=== PATIENT | male | born 1950 | race African-American/Black ===

== ENCOUNTER 2016-10-25 14:08 | Inpatient (IN) | payer MEDICARE ==
[~2016-10-25] VITALS: Ht 188 cm; Wt 130.9 kg
--- NOTE | ~2016-10-25 | EC ---
PATIENT:MENDOZA TRENT DATE OF SERVICE: 10/25/16 SEX: M MEDICAL RECORD: [id number] DATE OF : 46 LOCATION:D.M2 D.213 AGE OF PATIENT: 66 ADMISSION DATE: 10/25/16 REFERRING PHYSICIAN: INTERPRETING PHYSICIAN: CESAR CARUSO MD ECHOCARDIOGRAM REPORT ECHO CHARGES 4 ECHO COMPLETE CLINICAL DIAGNOSIS: CHF HX CAD/CABG/STENTS/HTN/DM ECHOCARDIOGRAPHIC MEASUREMENTS (adult normal given) AC root (d.<3.7cm) 4.6 LV Septum d (<1.2 cm> 1.8 Valve Excursion 2.0 LV Septum (systole) 2.4 Left Atria (s.<4.0cm> 3.7 LVPW d(<1.2cm) 1.6 RV (d.<2.3cm) 4.2 LVPW (sytole) 1.9 LV diastole(<5.6CM) 4.0 MV E-F(>70mm/sec) LV systole 2.4 LVOT Diameter 1.8 MV exc.(>10mm) 1.4 Est.ejection fraction (50-75%) Pericardial Effusion N DOPPLER: LVIT A 75.0 E 62.0 LA RVSP 15 LVOT 89 AOP1/2T Asc. Ao 114 RVOT 96 RA PA AV Gradient Peak 5.17 AV Mean 2.84 AV Area 2.0 MV Gradient Peak 4.45 MV Mean 1.59 MV Area COMMENTS: Pathology Supervisor: Nichole CORONA Construction Rep:10 Dr. Fabian TAPE# PACS DATE OF SERVICE: 10/30/2016 Adequate 2D echo, color flow, spectral Doppler, and M-mode. LVH is present. LV internal dimension is normal. Wall motion is normal. EF is greater than or equal to 55%. Aortic valve is tricuspid. No evidence of stenosis by Doppler interrogation. The left atrium is normal at ____ cm. Mitral valve shows no prolapse. Mild MR. Right-sided chamber is grossly normal. Trace TR. TRANSINT:[id number] Voice Confirmation ID: [id number] DOCUMENT ID: [id number] ECHOCARDIOGRAM REPORT [id number] MENDOZA TRENT CESAR CARUSO MD CC: [id number] DICTATION DATE: 10/30/16 1030 WELDER GAS AUTOMATIC: 10/30/16 1720 ADM IN [facility] [address] [place] [address]
[~2016-10-25 14:08] MED LIST: AMBIEN10 MG PO; ATARAX 25 MG TA25 MG PO; BAYER CHEWABLE81 MG PO; EMTRIVA200 MG PO; HUMULIN N100 U/ML SQ; HYDROCODONE-APA1 TA3 PO; KALETRA 200-501 EACH PO; MIRALAX17 GM PO; NASONEX NASAL S17 GM NS; PHENERGAN PO; PHOSLO667 MG PO; PRAVACHOL40 MG PO; RESTORIL15 MG PO; ROBITUSSIN100 MG/5 M; TOPROL XL25 MG PO; TUMS500 MG PO; TUSSIONEX 5 ML S5 ML PO; ULTRAM50 MG PO; VIREAD300 MG PO; [UNRECOGNIZED DRUG - OTHER] PO
--- NOTE | 2016-10-25 14:30 | NUR ---
ASSISTED WITH DRESSING CHANGE TO RIGHT HAND. RIGHT HAND WRAPPED AT THIS TIME. NEW DRESSING TIMED AND DATED. TOLERATED DRESSING CHANGE WELL.
--- NOTE | 2016-10-25 14:32 | NUR ---
PATIENT ARRIVED TO UNIT AMBULATING FROM ADMISSIONS. PATIENT ACCOMPANIED WITH FAMILY. ALERT/ORIENTED. CALL LIGHT WITHIN REACH. INFORMED PATIENT OF NPO STATUS UNTIL SEES HIM. VERBALIZED UNDERSTANDING BUT STATES THAT HE IS HUNGRY. NO DISTRESS. NON WORKING FISTULA TO RIGHT UPPER ARM.
[2016-10-25] MEDS ORDERED: NEURONTIN600 MG PO (14:39)
[2016-10-25] MEDS ORDERED: PLAVIX75 MG PO (14:40)
[2016-10-25] MEDS ORDERED: PRAVACHOL80 MG PO (14:42)
[2016-10-25] MEDS ORDERED: HYDROXYZINE HCL50 MG PO (14:44)
[2016-10-25] MEDS ORDERED: NOVOLIN N100 U/ML SQ (14:45)
[2016-10-25] MEDS ORDERED: TOPROL XL25 MG PO (14:49)
[2016-10-25] MEDS ORDERED: TUMS500 MG PO (14:50)
[2016-10-25] MEDS ORDERED: COLACE100 MG PO (14:52)
[2016-10-25] MEDS ORDERED: ADVIL200 MG PO (14:53)
[2016-10-25] MEDS ORDERED: VITAMIN B-121000 MCG PO (14:53)
[2016-10-25] MEDS ORDERED: CLARITIN 10 MG10 MG PO (14:54)
[2016-10-25] MEDS ORDERED: MOBIC7.5 MG PO (14:54)
[2016-10-25] MEDS ORDERED: RENVELA800 MG PO (14:55)
[2016-10-25] MEDS ORDERED: RENA-VITE TABL0.8 MG PO (14:55)
[2016-10-25] MEDS ORDERED: MIDODRINE HCL5 MG PO (14:55)
[2016-10-25] MEDS ORDERED: SONATA5 MG PO (14:56)
[2016-10-25] MEDS ORDERED: LYRICA50 MG PO (15:17)
--- NOTE | 2016-10-25 15:45 | NUR ---
22 GAUGE IV PLACED TO LEFT AC X 1 STICK VIA VASCUALR NURSE DAWSON. TAPE, DATED,AND SECURED. GOOD BLOOD RETURN, EASY FLUSH. TOLERATED IV PLACEMENT WELL.
[2016-10-25 16:12] VITALS: BP 148/75
[2016-10-25 16:17] LABS: INR 0.97 (0.85-1.17); PROTIME 12.7 SECONDS (11.6-15.0)
[2016-10-25 16:20] LABS: ANION GAP 11.7 mmol/L (8-16); CALCIUM 8.7 mg/dL (8.5-10.1); CARBON DIOXIDE 26.7 mmol/L (21.0-32.0); CREATININE - SERUM 6.3 mg/dL (0.6-1.3); POTASSIUM - SERUM 3.4 mmol/L (3.5-5.1)
--- NOTE | 2016-10-25 16:45 | NUR ---
DIALYSIS COORDINATOR: PATHWAYS: [facility] DIALYSIS TUES//SAT. Medical records forwarded to home unit for their records. EDGAR AVENDAÑO.
[2016-10-25 16:55] LABS: BASOPHILS 0.3 % (0-2); EOSINOPHILS 5.2 % (0-7); HEMATOCRIT 33.3 % (42.0-54.0); HEMOGLOBIN 10.5 g/dL (13.5-17.5); IMMATURE GRANULOCYTES 0.3 % (0-5); LYMPHOCYTES 23.5 % (15-50); MCHC 31.5 g/dL (31.0-37.0); MCV 104.7 fL (80.0-100.0); MEAN PLATELET VOLUME 11.9 fL (7.4-10.4); MONOCYTES 7.3 % (2-11); NEUTROPHILS 63.4 % (40-80); PLATELET COUNT 219 10x3/uL (130-400); RBC 3.18 10x6/uL (4.20-6.10); WBC 7.5 10x3/uL (4.8-10.8)
[2016-10-25 17:42] VITALS: BP 148/75; BMI 35.4
--- NOTE | 2016-10-25 18:30 | NUR ---
CONSENTS SIGNED AND PLACED ON CHART FOR EARLY AM PROCEDURE.
--- NOTE | 2016-10-25 19:25 | NUR ---
PT RECEIVED SITTING UP IN BED WATCHING TV AT THIS TIME WITH FAMILY MEMBER AT BEDSIDE. AAOX3. ASSESSMENT COMPLETED PER FLOW SHEET AT THIS TIME. PT DENIES NEEDS AT THIS TIME. BED LOW. PHONE AND CALL LIGHT IN REACH. SRX2.
[2016-10-25 22:09] VITALS: BP 182/84
--- NOTE | 2016-10-25 22:46 | NUR ---
PM MEDS GIVEN AT THIS TIME. PT DENIES NEEDS. BED LOW. PHONE AND CALL LIGHT IN REACH. SRX2.
--- NOTE | 2016-10-26 00:10 | NUR ---
DRESSING CHANGE COMPLETED AT THIS TIME. WRAPPED WITH GAUZE AND 2 PACKS OF KERLEX. PT REQUESTS PUDDING CUP AT THIS TIME. NO REDNESS, OR PURULENT DRAINAGE NOTED AT THIS TIME. DENIES OTHER NEEDS. BED LOW. PHONE AND CALL LIGHT IN REACH. SRX2.
[2016-10-26 00:45] VITALS: BP 178/86
--- NOTE | 2016-10-26 02:18 | NUR ---
PT LYING IN BED RESTING QUIETLY WITH EYES CLOSED. AROUSED EASILY. DENIES NEEDS. BED LOW. PHONE AND CALL LIGHT IN REACH. SRX2.
--- NOTE | 2016-10-26 04:22 | NUR ---
PT IV OUT AT THIS TIME. CATHETER TIP INTACT. WILL RESITE IV.
[2016-10-26 05:13] VITALS: BP 176/72
--- NOTE | 2016-10-26 06:12 | NUR ---
CHUTE BUILDER, DAVY ATTEMPTED IV STICK X2 UNSUCCESSFUL ATTEMPTS. UNABLE TO ADMINISTER IV ZOSYN AT THIS TIME DUE TO NO IV ACCESS, DAVY NOTIFIED OF THIS.
--- NOTE | 2016-10-26 07:45 | NUR ---
INTRODUCED MYSELF TO PT PRIMARY RN FOR TODAYS SHIFT. PT IS ALERT AND ORIENTED RESTING QUIETLY WITH AT BEDSIDE. PT WAS HELD NPO IN CASE OF SX TODAY HOWEVER I SPOKE WITH SX AND ITS SCHEDULED FOR TOMORROW MORNING @730AM WITH . PT DOESNT HAVE ANY HOME MEDS STARTED SO I PAGED RENAL AND ASK ABOUT BP MEDS AND OTHERS R/T HTN AND BEING DIABETIC AND NEEDING THOSE MEDS. PTS R.HAND IS CURRENT WRAPPED IN HIS DRSG AND WILL BE ASSESSED LATER AND CHANGE HIS DRSG. PTS R.ARM IS SUPPOSE TO BE ELEVATED ON PILLOWS HOWEVER HE STATES NO ONE TOLD HIM SO I PROPPED R.ARM ON 3 PILLOWS TO RAISE ABOVE HEART AND WILL ORDER HIM A SLING TO REMIND HIM TO KEEP ELEVATED TO HELP RELIEVE PRESSURE. PT HAS NO IV ACCESS BUT NEEDS IT FOR ANBX, SEVERAL NURSES HAVE TRIED WITHOUT SUCCESS WILL TRY TO OBTAIN ACCESS. PT REFUSES TO WEAR SCDS AND IS AMBULATORY. PT DENIES ANY FURTHER NEEDS AT THIS TIME. CL IN REACH. WILL CTM.
[2016-10-26 08:19] VITALS: BP 178/81
--- NOTE | 2016-10-26 10:16 | HP ---
PATIENT: MENDOZA TRENT MEDICAL RECORD: [id number] ACCOUNT: [id number] LOCATION:[address] : [birth year] ADMISSION DATE: 10/25/16 HISTORY AND PHYSICAL EXAMINATION CHIEF COMPLAINT: Sores on his right hand. HISTORY OF PRESENT ILLNESS: Mr. Trent is an -Irish male who presented today to [place] dialysis on his regular scheduled day of TTS at [facility]. The patient presented with wrap to left hand, asked to see hand unwrapped, the patient has his third, fourth and fifth digits with large gaping wounds down to the bone. The patient denies pain, but does have severe neuropathy, these sores do have an odor. The patient states on 09/28/2016, he underwent a fistulogram at [facility]. After fistulogram, his arm and hand were swollen, then within a week a blister popped up, the patient then went to the ER in [place]. The ER set him up with wound care. Today is the first time that I have seen his hands. Again, this is relatively new, popping up in the last 2-3 weeks. I discussed with tire and lube technician on-call, Dr. Garcia, and we are going to admit the patient for antibiotics and consulted Dr. Bettencourt, who is his surgeon. The patient has a history of type 2 diabetes, hypertension, coronary arteriosclerosis, peripheral nephropathy and end-stage renal disease. Again, he is a chronic [facility] kidney patient for dialysis on Monday, and Monday. He did receive a full treatment today prior to his family transporting him to [facility] in [place], [place]. PAST MEDICAL HISTORY: 1. ESRD from [facility], TTS chronic days. 2. Type 2 diabetes. 3. Hypertension. 4. Hyperlipidemia. 5. Coronary artery sclerosis. REVIEW OF SYSTEMS: Positive for wound to the right hand third, fourth and fifth fingers, positive with smelling and drainage, negative for pain. All other review of systems are negative. PHYSICAL EXAMINATION: VITAL SIGNS: Stable. GENERAL: While on dialysis, he is in no acute distress. HEENT: Normocephalic and atraumatic. PERRLA. EOMs intact. Mucous membranes moist. NECK: Supple, trachea midline. No JVD or carotid bruit. LUNGS: Clear to auscultation bilaterally. HEART: Regular rate and rhythm. No murmur, rub, or gallop. ABDOMEN: Soft, nontender. Positive bowel sounds. EXTREMITIES: He has that right access arm with slight swelling with the hand having third, fourth and fifth digits with very large gaping holes that you can see down to the bone with drainage. His fingertips, though, appear to be pink and have good capillary refill. ASSESSMENT AND PLAN: 1. Access hand complications. We will give patient antibiotics and consult Dr. Bettencourt, who is his surgeon. 2. End-stage renal disease. Continue his chronic days of TTS. HISTORY AND PHYSICAL [id number] MENDOZA TRENT 3. Hypertension. Continue his home medications. 4. Diabetes mellitus. Continue his home medications and monitor his blood sugars. TRANSINT:[id number] Voice Confirmation ID: [id number] DOCUMENT ID: [id number] Dictated By: GISSELL DELATORRE I have interviewed/examined the above patient and agree with these documented findings. JOSE GARCIA MD at 1438 at 1016 CC: [id number] DICTATION DATE: 10/25/16 1237 SHARPLES MACHINE OPERATOR: 10/25/16 1516 ADM IN [facility] [address] [place] [address]
--- NOTE | 2016-10-26 11:00 | NUR ---
RATIONALE FOR SCD'S EXPLAINED. REFUSES SCD'S
[2016-10-26 12:18] VITALS: BP 171/110
--- NOTE | 2016-10-26 13:47 | NUR ---
WOUND CARE CONSULT: REMOVED DRESSING FROM RIGHT HAND AND GENTLY CLEANSED WITH WOUND COMPUTER TYPESETTER. PATTED DRY. THERE ARE OPEN WOUNDS TO #3,4,5 FINGERS ON RIGHT HAND. WOUNDS ARE DRY AND WOUND BEDS ARE PALE RODRIGUES. NO ODOR NOTED AT THIS TIME. APPLIED SILVADENE CREAM TO OPEN AREAS WITH TONGUE BLADE, COVERED WITH NON-ADHERENT GAUZE. WRAPPED WITH 4X4S AND SECURED WITH KERLIX AND STOCKINGETTE. PT TOLERATED WELL.
--- NOTE | 2016-10-26 14:00 | NUR ---
SLING PLACED TO R.SHOULDER TO HELP ASSIST KEEPING PTS ARM ELEVATED ORDERED. PT VOICED THANKS AND STATES IT WILL HELP REMIND HIM. PT RESTING AND C/O WANTING TO TAKE HIS PLAVIX AND ASA. VERBALLY TOLD ME NOT TO RESTART IT R/T SX TOMORROW. PT IS NOT OKAY OR HAPPY ABOUT THIS AND FAMILY VERY CONCERNED STATING "HE CANT MISS A SINGLE DOSE OR HE WILL CLOT" FAMILY DEMANDING ME TO PAGE AND ASK IF ITS OKAY SO I PAGED HIM BUT HAVENT HEARD BACK. WILL CPOC.
[2016-10-26 14:20] VITALS: Ht 188 cm; Wt 130.9 kg
--- NOTE | 2016-10-26 15:26 | NUR ---
ANESTHESIA CAME TO TRY FOR IV ACCESS DUE TO NOT PREVIOUSLY BEING ABLE TO OBTAIN IT. SUCCESSFULLY OBTAINED 22 GUAGE TO PTS L.WRIST. INITIATED IV ANBX INFUSING OVER 30 MINS ALONG WITH NS TO RUN KVO WITH INTERMITT. ANBX. PT RESTING QUIETLY IN CHAIR WITH AT BEDSIDE. DENIES ANY CURRENT PAIN OR FURTHER NEEDS. WILL CTM.
[2016-10-26 15:47] VITALS: BP 168/89
--- NOTE | 2016-10-26 22:02 | NUR ---
HS MEDS GIVEN, BS 107, NO COVERAGE GIVEN PER S/S. REMINDED PT OF NOTHING TO EAT OR DRINK AFTER MN FOR SURGERY IN THE MORNING, PT STATED UNDERSTANDING. AT BED SIDE, BED LOW, CL IN REACH, WILL CONT TO MONITOR.
[2016-10-26 22:32] VITALS: BP 179/78
[2016-10-27 00:42] VITALS: BP 156/71
--- NOTE | 2016-10-27 03:45 | NUR ---
SAND MILL GRINDER AT BEDSIDE TO OBTAIN VITALS, CALL LIGHT IN REACH. WILL CONTINUE WITH PLAN OF CARE.
--- NOTE | 2016-10-27 05:48 | NUR ---
IV TO LEFT WRIST LEAKING, CATH REMOVED, TIP INTACT, COVERED WITH 2X2 AND TAPE.
[2016-10-27 06:08] LABS: BASOPHILS 0.4 % (0-2); EOSINOPHILS 5.8 % (0-7); IMMATURE GRANULOCYTES 0.3 % (0-5); LYMPHOCYTES 27.1 % (15-50); MCHC 31.3 g/dL (31.0-37.0); MCV 105.6 fL (80.0-100.0); MEAN PLATELET VOLUME 11.5 fL (7.4-10.4); MONOCYTES 8.9 % (2-11); NEUTROPHILS 57.5 % (40-80); PLATELET COUNT 203 10x3/uL (130-400); RBC 3.03 10x6/uL (4.20-6.10); WBC 7.4 10x3/uL (4.8-10.8)
[2016-10-27 06:10] VITALS: BP 189/92
--- NOTE | 2016-10-27 06:15 | NUR ---
PRE OP MEDS GIVEN WITH SIP OF WATER, NOTIFIED ALEJANDRA IN SURGERY THAT PTS IV IS OUT.
--- NOTE | 2016-10-27 06:25 | NUR ---
GONE TO SURGERY VIA BED WITH TRANSPORTER.
[2016-10-27 06:38] LABS: ANION GAP 15.9 mmol/L (8-16); CALCIUM 9.2 mg/dL (8.5-10.1); CARBON DIOXIDE 25.8 mmol/L (21.0-32.0); POTASSIUM - SERUM 3.7 mmol/L (3.5-5.1)
[2016-10-27 06:39] LABS: CREATININE - SERUM 9.6 mg/dL (0.6-1.3)
--- NOTE | 2016-10-27 07:53 | NUR ---
REC'D SHIFT REPORT PT OUT OF ROOM IN SX AT THIS TIME. WILL CHECK ORDERS AND CONTINUE WITH PLAN OF CARE.
[2016-10-27 08:24] LABS: HEPATITIS C ANTIBODY <0.1 (0.0-0.9)
[2016-10-27 11:28] VITALS: BP 169/78
--- NOTE | 2016-10-27 11:28 | NUR ---
PT BACK FROM PROCEDURE. VSS AND BEING RECORDED Q15 MINS PER PROTOCOL. PT IS AWAKE BUT VERY DROWSY RR NONLABORED WITH OXYMIZER @12L IN PLACE. O2 SAT 100% WEANING PT DOWN R/T HIM NOT USUALLY WEARING OXYGEN OR NEEDING IT. PT HAS A NEWLY PLACED R.CHEST HEMESPLIT WITH DRSG CDI BIOPATCH IN PLACE AND CAPS IN USE. PT HAS A DRSG TO HIS R.UPPER ARM R/T HAVING LIGATION TO THAT FISTULA SITE, DRSG IS SATURATED WITH BLOODY AND SHEET BENEATH HIM BLOODY. PAGED FOR ORDERS ABOUT CHANGING DRSG OR REINFORCING CURRENT DRSG. PT ALSO HAS DRSG AND FLACO BANDAGE WRAPPED AROUND HIS R.HAND FROM PROCEDURE OF DEBRIEMENT AND IT IS CDI. EXPLAINED WHAT HAPPENED IN SX WITH PT AND FAMILY AT BEDSIDE. PT RESTING AND DENIES BEING HUNGRY OR THIRSTY WANTS TO CONTINUE RESTING. WILL CTM CLOSELY.
[2016-10-27 11:55] VITALS: BP 171/78
--- NOTE | 2016-10-27 12:00 | NUR ---
WEANED PT DOWN TO 2L OXYMIZER WITH O2 SAT @99% PTS VSS AND PT DENIES ANY CURRENT PAIN OR NEEDS. CALLED BACK AND WANTED DRSG CHANGED, GAVE TELEPHONE ORDER TO WOUND CARE NURSE SAIMNA AND SHE IS AT BEDSIDE CHANGING SOILED DRSG AT THIS TIME. NO FURTHER NEEDS WILL CTM.
--- NOTE | 2016-10-27 12:30 | NUR ---
PT NOT WANTING TO EAT LUNCH AND DIALYSIS CALLED FOR HIM TO BE BROUGHT DOWN SO I HELD HIS BINDER MEDS. ASSISTED PLANNING ASSISTANT WITH CHANGING PT AND CLEANING HIM IN A NEW GOWN R/T SOILED FROM BLOOD. PT NOW READY FOR DIALYSIS. VSS STILL. NO FURTHER NEEDS.
--- NOTE | 2016-10-27 14:17 | NUR ---
1200 RECEIVED ORDER TO CHANGE DRESSING TO RIGHT UPPER ARM FROM DR. FUNES. REMOVED SOILED DRESSING AND GENTLY CLEANSED THE AREA WITH SAF CLENS/PATTED DRY. SUTURES INTACT, NO REDNESS OR ODOR. MODERATE AMOUNT OF BLEEDING IS NOTED ON UPPER MOST ASPECT. ARM IS EDEMATOUS. APPLIED CAVILON SKIN PROTECTANT TO SURROUNDING SKIN, CUT A PIECE OF MAXORB AG TO FIT OVER INCISION SITE AND SECURED IT WITH TEGADERM DRESSING. PT TOLERATED WELL. ALSO REINFORCED THE FLACO WRAP TO RIGHT HAND SURGICAL SITE. WOUND CARE WILL MONITOR.
--- NOTE | 2016-10-27 18:27 | NUR ---
AT BEDSIDE TO TALK WITH FAMILY AND CHECK ON R.HAND. DRSG IS STARTING TO COME OFF AFTER BEING BACK FROM DIALYSIS HE MAY HAD BEEN PULLING ON IT. MADE IT VERY CLEAR DRSG IS NOT TO BE REMOVED AT ALL FOR ANY REASON UNTIL HE DOES IT R/T WHAT ITS DRESSED WITH. REINFORCED DRSG AND FLACO BANDAGE TO MAKE SURE IT DOESNT COME OFF. PT VERBALIZED UNDERSTANDING AND DENIES ANY CURRENT PAIN OR FURTHER NEEDS AT THIS TIME. CL IN REACH, BED IN LOWEST, SIDE RAILS X2. WILL CTM.
[2016-10-27 19:00] VITALS: BP 129/66
[2016-10-28 04:00] VITALS: BP 164/62
--- NOTE | 2016-10-28 04:34 | NUR ---
ASSESSED AT THE BEGINNING OF THE SHIFT. PT IS ALERT AND ORIENTED, ABLE TO VERBALIZE NEEDS. HIS HAS REMAINED WITH HIM ALL NIGHT. THERE IS A DRESSING TO HIS LEFT ARM WHERE HE HAD SURGERY AND DILALYSIS ACCESS STARTED, HE HAS HIS HAND WRAPPED WITH A DRESSING DR HUNTER PLACED ON. HE IS UP AD BEAU AND HE HAS BEEN QUIET IN BED MOST OF THE NIGHT. THE BED IS LOW, RAILS UP X'S TWO WITH NO DISTRESS NOTED. THE CALL LIGHT IS AT HAND.
[2016-10-28 08:30] VITALS: BP 96/66
[2016-10-28 12:05] VITALS: BP 96/66
[2016-10-28 14:37] LABS: BASOPHILS 0.3 % (0-2); EOSINOPHILS 4.9 % (0-7); HEMATOCRIT 31.7 % (42.0-54.0); HEMOGLOBIN 9.9 g/dL (13.5-17.5); IMMATURE GRANULOCYTES 0.1 % (0-5); LYMPHOCYTES 21.7 % (15-50); MCH 33.4 pg (26.0-34.0); MCHC 31.2 g/dL (31.0-37.0); MCV 107.1 fL (80.0-100.0); MEAN PLATELET VOLUME 11.5 fL (7.4-10.4); MONOCYTES 7.6 % (2-11); NEUTROPHILS 65.4 % (40-80); PLATELET COUNT 194 10x3/uL (130-400); RBC 2.96 10x6/uL (4.20-6.10); WBC 8.7 10x3/uL (4.8-10.8)
--- NOTE | 2016-10-28 14:45 | NUR ---
PATIENT CALLED ME TO HIS ROOM, BLOOD DRIPPING FROM HIS LEFT HAND, IV OUT. HE DID NOT KNOW HE PULLED IV OUT. HELD PRESSURE UNTIL THE BLEEDING STOPPED. HELPED PATIENT GET CLEANED UP.
[2016-10-28 15:19] LABS: ANION GAP 14.7 mmol/L (8-16); CALCIUM 8.9 mg/dL (8.5-10.1); CARBON DIOXIDE 27.9 mmol/L (21.0-32.0); CREATININE - SERUM 8.3 mg/dL (0.6-1.3); POTASSIUM - SERUM 3.6 mmol/L (3.5-5.1)
--- NOTE | 2016-10-28 15:30 | NUR ---
CALLED SURGERY ASKED IF THEY CAN SEND OVER AN ANESTHESIOLOGIST TO START IV. THE VICE PRESIDENT OF PRODUCT MARKETING SAID SHE WILL SEND SOMEONE OVER.
[2016-10-28 15:51] VITALS: BP 152/73
--- NOTE | 2016-10-28 18:09 | NUR ---
WASHED HANDS THROUGHLY. MYSELF AND THE PATIENT WORE A SURGICAL MASK. USING STERILE TECHNIQUE REMOVED CAP FROM BLUE PORT OF HEMASPLIT, ATTACHED PRN ADAPTER AND FLUSHED SLOWLY WITH SALINE FLUSH. CONNECTED THE PRN ADAPTER TO NS TUBING-ALL NEW TUBING USED. THE BLUE PORT CAP, IS CONNECTED TO A STERILE WHITE END CAP, IN THE WRAPPER, TAPED CLOSED, AND TAPED TO THE IV POLE WITH A NOTE TO NOT THROW IT AWAY.
[2016-10-28 19:00] VITALS: BP 146/71
--- NOTE | 2016-10-28 22:05 | NUR ---
HS MEDS GIVEN WITH [facility] ICE WATER, BS 173, NPH GIVEN AT ORDERED. ULTRAM 1 TAB GIVEN FOR C/O PAIN TO RIGHT HAND AND RIGHT UPPER ARM. EXTRA PILLOWS AND LINENS TAKEN TO ROOM FOR DAUGHTER TO STAY THE NIGHT.
[2016-10-29] VITALS: BP 151/72
--- NOTE | 2016-10-29 02:53 | NUR ---
RESTING WITH EYES CLOSED, RESPERATIONS EVEN, NO S/S DISTRESS NOTED.
[2016-10-29 04:00] VITALS: BP 147/92
--- NOTE | 2016-10-29 04:51 | NUR ---
ANSWERED CL, DRSG TO PTS UPPER RIGHT ARM IS OFF. PARTIAL WOUND DEHISCENCE NOTED TO MIDDLE OF INCISION, APPEARS THAT 5TH STITCH FROM TOP IS GONE. CLEANSED OUT SIDE OF INCISION WITH BETADINE SWABS, USED 4 STERI STRIPS TO PULL INCINSION TOGETHER, COVERED WITH ABD PAD AND WRAPPED WITH GAUZE.
[2016-10-29 06:51] LABS: BASOPHILS 0.4 % (0-2); EOSINOPHILS 7.5 % (0-7); HEMOGLOBIN 10.2 g/dL (13.5-17.5); IMMATURE GRANULOCYTES 0.1 % (0-5); MCH 32.6 pg (26.0-34.0); MCHC 30.9 g/dL (31.0-37.0); MCV 105.4 fL (80.0-100.0); MEAN PLATELET VOLUME 12.2 fL (7.4-10.4); MONOCYTES 11.2 % (2-11); NEUTROPHILS 58.8 % (40-80); PLATELET COUNT 203 10x3/uL (130-400); RBC 3.13 10x6/uL (4.20-6.10); RDW 13.7 % (11.5-14.5); WBC 8.1 10x3/uL (4.8-10.8)
[2016-10-29 06:59] LABS: ANION GAP 12.2 mmol/L (8-16); CALCIUM 9.6 mg/dL (8.5-10.1); CARBON DIOXIDE 30.4 mmol/L (21.0-32.0); CREATININE - SERUM 10.1 mg/dL (0.6-1.3); POTASSIUM - SERUM 3.6 mmol/L (3.5-5.1)
--- NOTE | 2016-10-29 07:00 | NUR ---
RECEIVED REPORT. ASSUMED CARE OF PATIENT. CALL LIGHT WITHIN REACH. PATIENT SITTING UP IN BED CONSUMING COFFEE. DENIES NEEDS AT THIS TIME. NO DISTRESS. STATES HE FEELS BETTER TODAY.
--- NOTE | 2016-10-29 07:10 | NUR ---
RECEIVED REPORT. ASSUMED CARE OF PATIENT. CALL LIGHT WITHIN REACH. DAUGHTER AT BEDSIDE. PATIENT SITTING UP IN BED WITH NEBULIZER TREATMENT IN PROGRESS. PATIENT INQUIRING ABOUT WHAT TIME HIS DIALYSIS WILL BE TODAY. DENIES NEEDS AT THIS TIME. NO DISTRESS.
[2016-10-29 08:54] VITALS: BP 188/87
--- NOTE | 2016-10-29 09:30 | NUR ---
0915 FINANCE MANAGER FOR HERE AND CHANGING DRESSING TO PATIENT RIGHT HAND. NO GRAFT HAS BEEN PLACED AT THIS TIME. DRESSSING CHANGE COMPLETED AND FINANCE MANAGER STATED SHE WOULD INPUT ORDERS FOR DAILY DRESSING CHANGES STARTING TOMORROW.
--- NOTE | 2016-10-29 10:53 | NUR ---
PATIENT LEFT UNIT VIA BED FOR DIALYSIS AT 1040. NO DISTRESS UPON LEAVING UNIT.
--- NOTE | 2016-10-29 15:00 | NUR ---
DIALYSIS TREATMENT COMPLETED, NET FLUID REMOVAL OF 6000ML, TOLERATED WELL, BLOOD RETURNED, LINES FLUSHED, AND HEPARIN DWELLING. REPORT CALLED TO "REDDY" AND PATIENT RETURNED BY FLOOR PERSONEL.
--- NOTE | 2016-10-29 15:29 | NUR ---
1515 PATIENT RETRIEVED FROM DIALYSIS VIA BED. 6 LITERS REMOVED. ALERT/ORIENTED. NO DISTRESS.
[2016-10-29 16:59] VITALS: BP 101/67
[2016-10-29 19:00] VITALS: BP 131/70
--- NOTE | 2016-10-29 19:20 | NUR ---
RECEIVED REPORT, PT VISITING WITH FAMILY, DENIES ANY NEEDS AT THIS TIME, BED IS LOW, SRX2, CALL LIGHT IN REACH, WILL CONTINUE PLAN OF CARE
[2016-10-30] VITALS: BP 146/85
--- NOTE | 2016-10-30 03:52 | NUR ---
ASSESSMENT COMPLETE, SEE FLOWSHEET, PT SITTING UP IN BED VISITING WITH , DENIES ANY NEEDS, BED IS LOW, SRX2, CALL LIGHT IN REACH, WILL CONTINUE PLAN OF CARE
[2016-10-30 04:00] VITALS: BP 146/70
--- NOTE | 2016-10-30 04:34 | NUR ---
PT RESTING IN BED WITH NO DISTRESS. CPOC.
[2016-10-30 06:55] LABS: BASOPHILS 0.3 % (0-2); EOSINOPHILS 6.8 % (0-7); HEMATOCRIT 31.2 % (42.0-54.0); HEMOGLOBIN 9.6 g/dL (13.5-17.5); IMMATURE GRANULOCYTES 0.2 % (0-5); LYMPHOCYTES 21.2 % (15-50); MCH 32.3 pg (26.0-34.0); MCHC 30.8 g/dL (31.0-37.0); MCV 105.1 fL (80.0-100.0); MEAN PLATELET VOLUME 12.1 fL (7.4-10.4); MONOCYTES 11.2 % (2-11); NEUTROPHILS 60.3 % (40-80); PLATELET COUNT 218 10x3/uL (130-400); RBC 2.97 10x6/uL (4.20-6.10); RDW 13.7 % (11.5-14.5)
[2016-10-30 07:23] LABS: ANION GAP 8.4 mmol/L (8-16); CALCIUM 9.2 mg/dL (8.5-10.1); CARBON DIOXIDE 33.9 mmol/L (21.0-32.0); CREATININE - SERUM 8.1 mg/dL (0.6-1.3); POTASSIUM - SERUM 3.3 mmol/L (3.5-5.1)
--- NOTE | 2016-10-30 07:35 | NUR ---
RECEIVED CALL FROM LAB, STATING PT BLOOD SUGAR IS 50 THIS AM. WILL PROVIDED PT WITH A CUP OF APPLE JUICE AND RECHECK HIS BLOOD SUGAR IN 30MIN.
[2016-10-30 08:00] VITALS: BP 133/67
--- NOTE | 2016-10-30 09:27 | NUR ---
ADMINISTERED MORNING MEDICATIONS, PT UP TO CHAIR, JUST CAME BACK TO ROOM FROM WALKING 250FT WITH PHYSICAL THERAPY. PT DENIES ANY NEEDS AT THIS TIME. CALL LIGHT IN REACH, AT BEDSIDE, NAD NOTED, WILL CONTINUE TO MONITOR.
[2016-10-30 12:00] VITALS: BP 132/55
--- NOTE | 2016-10-30 15:00 | NUR ---
PROVIDED DRESSING CHANGE TO RT HAND, CLEANED WITH WOUND CLEANSER AND PLACED 4X4 GAUZE AND COVERED WITH KERLEX. ALSO PROVIDED DRESSING CHANGE TO RT UPPER ARM, CLEANED SITE WITH WOUND CLEANSER AND APPLIED ABD PAD AND COVERED WITH KERLEX. PT TOLERATED PROCEDURE WELL. DENIES ANY NEEDS AT THIS TIME. CALL LIGHT IN REACH, NAD NOTED, WILL CONTINUE TO MONITOR.
[2016-10-30 16:00] VITALS: BP 130/74
--- NOTE | 2016-10-30 16:29 | NUR ---
IVPB ZOSYN HUNG AT THIS TIME. PT UP TO CHAIR, DENIES ANY NEEDS AT THIS TIME. CALL LIGHT IN REACH, COMPANY AT BEDSIDE, NAD NOTED, WILL CONTINUE TO MONITOR.
[2016-10-30 19:00] VITALS: BP 166/89
--- NOTE | 2016-10-30 19:00 | NUR ---
INITIAL ROUNDS MADE. PT SITTING UP IN BED WITH FAMILY AT BEDSIDE. NO NEEDS OR C/O VOICED AT THIS TIME. CALL LIGHT IN REACH. WILL CONT TO MONITOR.
--- NOTE | 2016-10-30 21:24 | NUR ---
HS MEDS GIVEN WITHOUT DIFFICULTY. CONT TO MONITOR.
[2016-10-31] VITALS: BP 127/88
--- NOTE | 2016-10-31 03:42 | NUR ---
UKRAINIAN FOLK ARTS INSTRUCTOR AT BEDSIDE FOR VS. NEEDS ADDRESSED AT THIS TIME. CALL LIGHT IN REACH. WILL CONT TO MONITOR.
[2016-10-31 04:00] VITALS: BP 182/78
[2016-10-31 05:33] LABS: BASOPHILS 0.3 % (0-2); EOSINOPHILS 7.8 % (0-7); HEMATOCRIT 30.7 % (42.0-54.0); HEMOGLOBIN 9.9 g/dL (13.5-17.5); IMMATURE GRANULOCYTES 0.3 % (0-5); LYMPHOCYTES 19.9 % (15-50); MCHC 32.2 g/dL (31.0-37.0); MCV 105.5 fL (80.0-100.0); MONOCYTES 9.4 % (2-11); NEUTROPHILS 62.3 % (40-80); PLATELET COUNT 187 10x3/uL (130-400); RBC 2.91 10x6/uL (4.20-6.10); RDW 13.5 % (11.5-14.5); WBC 9.3 10x3/uL (4.8-10.8)
[2016-10-31 06:03] LABS: ANION GAP 11.3 mmol/L (8-16); CALCIUM 9.3 mg/dL (8.5-10.1); CARBON DIOXIDE 31.3 mmol/L (21.0-32.0); POTASSIUM - SERUM 3.6 mmol/L (3.5-5.1)
[2016-10-31 07:52] VITALS: BP 214/80
--- NOTE | 2016-10-31 08:15 | NUR ---
DR.RUDDER CECE'S NURSE AT BEDSIDE CHANGING DRESSING TO RIGHT HAND.
[2016-10-31 08:20] VITALS: BP 200/103
--- NOTE | 2016-10-31 09:22 | OP ---
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 PROCEDURES: 1. Excisional debridement of right long finger, less than 20 cm. 2. Excisional debridement of right ring finger, less than 20 cm. 3. Excisional debridement of right small finger, less than 20 cm to include skin, subcutaneous tissue, portions of fat, fascia and tendon. SURGEON: Max Hunter MD. ANESTHESIA: General. INDICATIONS: Mendoza Trent is a gentleman who is a dialysis patient and evidently had either venous stasis or component of arterial steal from his shunt. At any rate, he had slowly developed full-thickness necrotic wounds over his fingers. I was asked by Dr. Funes to care for these after he had reestablished dialysis access and tried to return blood flow in the venous outlet in this patient as a first part of the operative procedure. OPERATIVE SUMMARY IN DETAIL: The patient was already asleep, preoperative consents have already been obtained. The patient's right hand was prepped and draped in a routine sterile manner. Starting with the right long finger first, sharp debridement using the scalpel was utilized to take down all the tissue on the long finger, only a very small portion of tendon was exposed, good bleeding had been already reestablished and after excisional debridement of the necrotic tissue, it did appear that the patient will be suitable for a full-thickness skin graft in the future. Attention was then turned to the ring finger, the worst of the 3. Again, sharp scalpel debridement was carried out down to the level of the tendon, some areas of necrotic tendon were removed as well. However, peripherally, there was excellent blood flow. Exposure of the tendon was at its best to 1 cm by approximately 0.8 cm. Again, good blood flow was seen and lastly, the small finger was also debrided with sharp scalpel excision and again, good blood flow was achieved. Copious bulb syringe lavage was utilized on all 3 fingers. At this point, two 50 mg vials of Neox ____ umbilical cord powder was placed primarily over the exposed tendons of the 3 fingers, mostly on the ring finger, but also including the small and long finger. At this point, sterile dressings were applied in an effort to keep the Neox powder on the fingers and the patient was awakened and taken to recovery room in stable condition. All final needle and sponge counts were correct for my portion of the case. TRANSINT:[id number] Voice Confirmation ID: [id number] DOCUMENT ID: [id number] OPERATIVE REPORT [id number] MENDOZA TRENT MD, MAX PETERSON at 0922 CC: MAX FUNES MD [id number] DICTATION DATE: 10/27/16 0947 BACKPACKERS MANAGER: 10/27/16 1623 ADM IN [facility] [address] [place] [address]
--- NOTE | 2016-10-31 10:20 | NUR ---
WAYLON, PHYSICAL OTOLARYNGOLOGY REP CAME TO ME AND NOTIFIED ME THAT WHILE PATIENT WAS WALKING HE WAS PUSHING IV POLE AND HIS RIGHT HAND DRESSING GOT HUNG ON THE IV POLE. WENT TO PATIENT'S ROOM, ASSESSED THE HAND AND DRESSING. THE KERLIX WAS DANGLING AT HIS FINGER TIPS, UPPER PART OF DRESSING STILL AROUND WRIST. THERE IS XEROFORM IN THE KERLIX. HIS FINGERS ARE VISIBLE. THE POSTERIOR PORTION OF HIS FINGERS APPEAR TO BE POST INCISION AND DRAINAGE, THERE IS NO VISIBLE GRAFT NOTED. NOTIFIED SAMINA, WOUND CARE CARE NURSE.
[2016-10-31] MEDS ORDERED: FEXOFENADINE HC60 MG PO (10:45)
[2016-10-31] MEDS ORDERED: BROVANA15 MCG/2 M INH (10:46)
[2016-10-31] MEDS ORDERED: IPRAT-ALBUT 0.5-3 ML UPD (10:46)
[2016-10-31] MEDS ORDERED: BENZONATATE200 MG PO (10:48)
[2016-10-31] MEDS ORDERED: MUCINEX DM ER1 EAC1 PO (10:49)
[2016-10-31] MEDS ORDERED: PULMICORT0.5 MG/21 UPD (10:49)
[2016-10-31] MEDS ORDERED: TUSSIONEX PENN473 ML PO (10:50)
[2016-10-31] MEDS ORDERED: SINGULAIR10 MG PO (10:50)
[2016-10-31] MEDS ORDERED: PROTONIX40 MG PO (10:51)
[2016-10-31] MEDS ORDERED: Astelin NASAL SPRAY NASAL (10:51)
[2016-10-31] MEDS ORDERED: KEFLEX250 MG PO (10:55)
--- NOTE | 2016-10-31 11:30 | NUR ---
SPOKE WITH SAMEERA BARRETT, NURSE FOR . NOTIFIED HER ABOUT THE DRESSING COMING OFF AND THAT THE FINGERS DO NOT APPEAR TO HAVE A NEOX GRAFT. ASKED HER ABOUT DISCHARGE. SHE STATED "YOU CAN DISCHARGE HIM. WE WILL SEE HIM IN A WEEK IN THE CLINIC AND WE WILL GO FROM THERE."
[2016-10-31 11:56] VITALS: BP 153/59
--- NOTE | 2016-10-31 13:51 | NUR ---
PATIENT DISCHARGING HOME TODAY. DENIES PREFERENCE ON SPECIFIC HOME HEALTH OR DME COMPANY. ONLY REQUESTE IS THAT THEY BE BASED IN [place], [place]. CONTACTED [facility] LISTED ON GOOGLE SEARCH, AND PROCEDED FROM THERE TO FIND A COMPANY THAT COULD CARE FOR PATIENTS NEEDS. INFORMATION WAS ASSEMBLED AND SENT. [facility] [place] WILL BE PROVIDING NEBULIZER AND MEDICATIONS FOR THE PATIENT. [facility] WILL START SERVICES FOR WOUND CARE, STARTING TOMORROW 11/01. THIS INFORMATION RELAYED TO PATIENT WITH CONTACT NUMBERS FOR EACH AGENCY PRINTED ON HIS DISCHARGE PAPERWORK.
[2016-10-31] MEDS ORDERED: ADVAIR 250/501 DISK INH (14:39)
--- NOTE | 2016-10-31 14:50 | NUR ---
NEW DISCHARGE MEDICATION - DIANE ROMERO CALLED TO [facility] [place] SPOKE WITH YUNI/PHARMACIST
--- NOTE | 2016-10-31 15:37 | NUR ---
DISCHARGE INSTRUCTIONS COMPLETED WITH PATIENT AND . ANSWERED ALL QUESTIONS. STRESSED THE IMPORTANCE OF KEEPING RIGHT HAND DRESSING INTACT AND ONLY OR HIS NURSE TO CHANGE THE DRESSING. STRESSED THE IMPORTANCE OF KEEPING HEMASPLIT DRESSING CLEAN, DRY AND INTACT. PATIENT AND PATIENT'S VERBALIZED UNDERSTANDING AND DENY QUESTIONS. PATIENT LEFT VIA WHEELCHAIR WITH VOLUNTEER STAFF, AND FRIEND.
[2016-11-01 07:27] LABS: IMMUNOGLOBULIN E 50 IU/mL (0-100)
== END 2016-10-31 15:39 | disposition home health service (06) | DRG 252 ==
LOC: D.M2 14:08
PROVIDERS: Internal Medicine Pulmonary Disease; Orthopaedic Surgery; Surgery; ADMIT Internal Medicine
PROC: 05LB0ZZ Occlusion of Right Basilic Vein, Open Approach (ICD-10-PCS; 2016-10-27)
PROC: 05793ZZ Dilation of Right Brachial Vein, Percutaneous Approach (ICD-10-PCS; 2016-10-27)
PROC: 057D3ZZ Dilation of Right Cephalic Vein, Percutaneous Approach (ICD-10-PCS; 2016-10-27)
PROC: B51W1ZZ Fluoroscopy of Dialysis Shunt/Fistula using Low Osmolar Contrast (ICD-10-PCS; 2016-10-27)
PROC: 02H633Z Insertion of Infusion Device into Right Atrium, Percutaneous Approach (ICD-10-PCS; 2016-10-27)
PROC: B244ZZZ Ultrasonography of Right Heart (ICD-10-PCS; 2016-10-27)
PROC: 0LB70ZZ Excision of Right Hand Tendon, Open Approach (ICD-10-PCS; principal; 2016-10-27 07:00)
PROC: 03L70ZZ Occlusion of Right Brachial Artery, Open Approach (ICD-10-PCS; 2016-10-27 07:00)
PROC: 0LU Tendons, Supplement (ICD-10-PCS; 2016-10-27 07:00)
DX: T82.590A Other mechanical complication of surgically created arteriovenous fistula, initial encounter (principal); N18.6 End stage renal disease; B20 Human immunodeficiency virus [HIV] disease; E11.52 Type 2 diabetes mellitus with diabetic peripheral angiopathy with gangrene; I12.0 Hypertensive chronic kidney disease with stage 5 chronic kidney disease or end stage renal disease; I82.A11 Acute embolism and thrombosis of right axillary vein; I87.1 Compression of vein; L03.011 Cellulitis of right finger; E11.22 Type 2 diabetes mellitus with diabetic chronic kidney disease; E78.5 Hyperlipidemia, unspecified; D63.1 Anemia in chronic kidney disease; Y83.8 Other surgical procedures as the cause of abnormal reaction of the patient, or of later complication, without mention of misadventure at the time of the procedure; I25.10 Atherosclerotic heart disease of native coronary artery without angina pectoris; G47.33 Obstructive sleep apnea (adult) (pediatric); Z91.19 Patient's noncompliance with other medical treatment and regimen

== ENCOUNTER 2016-11-14 06:27 | Inpatient (IN) | payer MEDICARE ==
[2016-11-14] VITALS (11 sets, daily range): BP systolic 97–193; BP diastolic 56–99; BMI 35.4; BMI 38.3
[~2016-11-14] VITALS: Ht 188 cm; Wt 131.6 kg
[~2016-11-14 06:27] MED LIST changes: +ADVAIR 250/501 DISK INH; +ADVIL200 MG PO; +Astelin NASAL SPRAY NASAL; +BENZONATATE200 MG PO; +BROVANA15 MCG/2 M INH; +CLARITIN 10 MG10 MG PO; +COLACE100 MG PO; +FEXOFENADINE HC60 MG PO; +HYDROXYZINE HCL50 MG PO; +IPRAT-ALBUT 0.5-3 ML UPD; +KEFLEX250 MG PO; +LYRICA50 MG PO; +MIDODRINE HCL5 MG PO; +MOBIC7.5 MG PO; +MUCINEX DM ER1 EAC1 PO; +NEURONTIN600 MG PO; +NOVOLIN N100 U/ML SQ; +PLAVIX75 MG PO; +PRAVACHOL80 MG PO; +PROTONIX40 MG PO; +PULMICORT0.5 MG/21 UPD; +RENA-VITE TABL0.8 MG PO; +RENVELA800 MG PO; +SINGULAIR10 MG PO; +SONATA5 MG PO; +TUSSIONEX PENN473 ML PO; +VITAMIN B-121000 MCG PO
[2016-11-14 07:24] LABS: BASOPHILS 0.5 % (0-2); EOSINOPHILS 5.5 % (0-7); HEMATOCRIT 32.1 % (42.0-54.0); HEMOGLOBIN 9.9 g/dL (13.5-17.5); IMMATURE GRANULOCYTES 0.3 % (0-5); LYMPHOCYTES 23.5 % (15-50); MCH 32.7 pg (26.0-34.0); MCHC 30.8 g/dL (31.0-37.0); MCV 105.9 fL (80.0-100.0); MEAN PLATELET VOLUME 11.2 fL (7.4-10.4); MONOCYTES 6.2 % (2-11); PLATELET COUNT 173 10x3/uL (130-400); RBC 3.03 10x6/uL (4.20-6.10); RDW 14.4 % (11.5-14.5); WBC 7.4 10x3/uL (4.8-10.8)
[2016-11-14 07:35] LABS: ANION GAP 12.6 mmol/L (8-16); APTT 32.5 SECONDS (22.8-39.4); CARBON DIOXIDE 28.8 mmol/L (21.0-32.0); CREATININE - SERUM 9.1 mg/dL (0.6-1.3); INR 0.97 (0.85-1.17); POTASSIUM - SERUM 4.4 mmol/L (3.5-5.1); PROTIME 12.7 SECONDS (11.6-15.0)
[2016-11-14] MEDS ORDERED: ALEVE220 MG PO (07:42)
--- NOTE | 2016-11-14 09:39 | NUR ---
BLOOD SUGAR 52, ORDERS TO GIVE 1/2 AMP D50 FROM DIANA PORTILLO, D50 GIVEN AT 0910, BLOOD SUGAR 80 AT 0930.
--- NOTE | 2016-11-14 10:25 | NUR ---
PT'S SOCK ON RIGHT HAND REMOVED,BAGGED AND LABELED AND PLACED ON CHART PER FADY
[2016-11-14] MEDS ORDERED: HYDROCODONE-APA1 TAB PO (11:43)
--- NOTE | 2016-11-14 11:46 | NUR ---
TRANSPORTING TO PACU WITH MASK AND 02
--- NOTE | 2016-11-14 12:25 | NUR ---
DR CROSS ORDERED STAT ABG'S. RESPIRATORY AT BEDSIDE 1225.
--- NOTE | 2016-11-14 12:25 | NUR ---
DR CROSS ORDERED STAT CXR. X-RAY TECH AT BEDSIDE AT 1224.
--- NOTE | 2016-11-14 13:20 | NUR ---
KWESI JAFFEER PLACED AT 1315.
--- NOTE | 2016-11-14 16:26 | OP ---
PATIENT NAME: MENDOZA TRENT MEDICAL RECORD: [id number] :46 LOCATION:.[facility] [id number] ADMISSION DATE:11/14/16 SURGEON: MAX HUNTER MD DATE OF OPERATION: 11/14/2016 PREOPERATIVE DIAGNOSES: 1. Ulceration to the right hand third finger at the PIP joint. 2. Ulceration, right hand ring finger at the PIP joint. 3. Ulceration, right small finger at the PIP joint. POSTOPERATIVE DIAGNOSES: 1. Ulceration to the right hand third finger at the PIP joint. 2. Ulceration, right hand ring finger at the PIP joint. 3. Ulceration, right small finger at the PIP joint. PROCEDURE: Full-thickness skin grafting to all 3 of the above fingers. SURGEON: Max Hunter MD. ANESTHESIA: General. INTRAOPERATIVE COMPLICATIONS: None. SUMMARY OF PATHOLOGIC FINDINGS: The patient had good granulation bed, one area of exposed tendon is still concerned over the ring finger, which was the most problematic at this point. Please note that Amniox Uvaldo was used in the bed of these prior to putting the graft down. OPERATIVE SUMMARY IN DETAIL: After obtaining the appropriate preoperative orthopedic surgery consent as well as anesthetic consultation, evaluation and clearance, the patient was brought to the operating room and placed on the operating table in supine position. After general laryngeal mask was administered, the patient's right upper extremity was prepped and draped in routine sterile fashion. 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 Attention was first turned to generalized debridement of all 3 areas of ulceration. A combination of scalpel, curette as well as a Ray-Rae and rongeur were utilized to debride all nonviable appearing tissue. This was all taken back to good bleeding, wound beds on all 3 of the digits as described. First and largest of the skin graft was taken from the back of the hand in elliptical fashion. It was used to cover one half of the ring finger wound. This was very carefully stitched in with 4-0 Prolene in interrupted fashion. Having completed this, a second skin graft was taken much larger from the volar aspect of the forearm with the remainder of the skin grafts were taken. Half of the skin graft was used to cover the remaining half of the ring finger ulcer. Again, this was stitched in with multiple 4-0 Prolenes. Having completed this, the second half of the second graft was then used to cover the small finger ulceration, it was stitched it again with 4-0 Prolene and covered it nicely. Lastly, further smaller grafts were taken for further up the volar aspect of the forearm and they were then used to cover the long finger ulceration, each graft covering half of the wound. At the end, photographs were taken and all donor sites were closed with 4-0 Prolene in interrupted fashion. Sterile dressings were applied. Please note that again Amniox was used. Sterile dressings were applied. The patient was awakened, taken to recovery in stable condition. All final needle and sponge counts were correct. OPERATIVE REPORT [id number] MILEYRADHAJessica PURI TRANSINT:[id number] Voice Confirmation ID: [id number] DOCUMENT ID: [id number] ELSA CEBALLOS, MAX PETERSON at 1626 CC: [id number] DICTATION DATE: 11/14/16 1151 EYEDOTTER: 11/14/16 1513 ADM IN [place] [id number] [place] [id number]
--- NOTE | 2016-11-14 16:56 | NUR ---
ABG'S CALLED TO DR HASKINS. REC'D ORDERS.
--- NOTE | 2016-11-14 18:47 | NUR ---
1400- REC'D PT TO ICU, ALL CARDIO PULMONARY MONITORING EQUIPMENT ATTACHED AND ALARMS SET. BIPAP PLACED ORDERED, PT AWAKENS EASILY BUT BACK TO SLEEP QUICKLY. RT ARM DSNG WITH BLOODY DRAINAGE NOTED. RADIAL PULSE PALP. VSS, AFEBRILE.
--- NOTE | 2016-11-14 19:00 | NUR ---
SHIFT ASSESSMENT COMPLETE. PT CALM AND ALERT TO TIME, PLACE, SELF, AND SITUATION. PT REQUESTS THAT I CALL HIS AFTER ASSESSMENT IS COMPLETE. PUPILS 4 MM, BRISK REACTION TO LIGHT. SMALL RED LESION ON THE BACK OF PT THROAT NOTED, NO TEETH. NC @ 2 L/MIN. S1S2 AUDIBLE, HR 72, NORMAL SINUS VIA TELEMETRY. CRACKLES HEARD BILAT IN LUNGS. BOWEL SOUNDS ACTIVE. ABDOMEN DISTENDED. R CHEST TESSIO, STERILE DRESSING CHANGE DONE. R ARM DRESSING WITH BLOODY DRAINAGE NOTED. PT ABLE TO MOVE FINGERS EASILY, HAND IS WARM, CAP REFILL < 3 SEC. RADIAL PULSES +2. SCDS REMOVED AND SKIN ASSESSED, WNL. PEDAL PULSES +2. PT MOVING LEGS WITH NO PROBLEM. CLEANED UP BED. NEW GOWN AND PILLOW CASES. PT DENIES ANY PAIN AT THIS TIME. VSS. CALL LIGHT IN REACH. WILL CONTINUE TO MONITOR.
--- NOTE | 2016-11-14 20:00 | NUR ---
SPOKE WITH , SISTER, AND DAUGHTER. UPDATED THEM ON THEIR LOVED ONE. INFORMED PT THAT I HAD SPOKEN WITH THEM. NO REQUEST AT THIS TIME.
--- NOTE | 2016-11-14 20:31 | NUR ---
Nilton AGUILARN NOTIFIED OF BLOODY DRAINAGE FROM R ARM, NEW ORDER TO REINFORCE WITH 4X4 AND KERLEX - DO NOT BREAK DOWN DSG.
--- NOTE | 2016-11-14 21:15 | NUR ---
BLOOD SUGAR 115. NO INSULIN ADMIN. PT EATING SANDWICH AND GRAPES WITH A SPRITE TO DRINK. BED IN LOWEST POSITION. TV ON. PT ABLE TO FEED HIMSELF. NO REQUEST AT THIS TIME.
--- NOTE | 2016-11-14 23:30 | NUR ---
REASSESSMENT COMPLETE. DRESSING ON R ARM HAS A MODERATE AMOUNT OF BLOODY DRAINAGE SOAKING THROUGH. CLOTTING NOTED. CHANGED PAD UNDERNEATH AND REINFORCED DRESSING WITH GAUZE AND KERLEX. WILL CONTINUE TO MONITOR. NO FURTHER CHANGES AT THIS TIME. PT RESTING IN BED. BIPAP ON.
[2016-11-15] VITALS (24 sets, daily range): BP systolic 92–154; BP diastolic 52–83; Ht 188 cm; Wt 131.6 kg
--- NOTE | 2016-11-15 01:30 | NUR ---
PT SLEEPING WITH BIPAP ON. VSS. OXYGEN SATURATION 98%. BED IN LOWEST POSITION. CALL LIGHT IN REACH. WILL CONTINUE TO MONITOR.
--- NOTE | 2016-11-15 03:00 | NUR ---
PT SLEEPING WITH NO SIGNS OF DISTRESS NOTED. VSS. RT ARM DRESSING INTACT WITH BLOODY DRAINAGE. CLOTS NOTED. CHANGED PAD UNDER HIS ARM. REASSESSMENT COMPLETE. WILL CONTINUE TO MONITOR.
[2016-11-15 05:04] LABS: BASOPHILS 0.2 % (0-2); EOSINOPHILS 3.2 % (0-7); HEMATOCRIT 25.7 % (42.0-54.0); HEMOGLOBIN 8.1 g/dL (13.5-17.5); IMMATURE GRANULOCYTES 0.4 % (0-5); LYMPHOCYTES 18.9 % (15-50); MCH 33.3 pg (26.0-34.0); MCHC 31.5 g/dL (31.0-37.0); MCV 105.8 fL (80.0-100.0); NEUTROPHILS 70.3 % (40-80); PLATELET COUNT 195 10x3/uL (130-400); RBC 2.43 10x6/uL (4.20-6.10); RDW 14.5 % (11.5-14.5)
[2016-11-15 05:19] LABS: ANION GAP 12.9 mmol/L (8-16); CALCIUM 8.9 mg/dL (8.5-10.1); CARBON DIOXIDE 25.8 mmol/L (21.0-32.0); CREATININE - SERUM 10.3 mg/dL (0.6-1.3); POTASSIUM - SERUM 4.7 mmol/L (3.5-5.1)
--- NOTE | 2016-11-15 05:32 | NUR ---
PT RESTING PEACEFULLY AT THIS TIME. BIPAP FI02 TURNED DOWN TO 25% VIA RT O2 SAT IS 96% WITH A GOOD WAVE FORM. BED IN LOWEST POSITION. WILL CONTINUE TO MONITOR. CALL LIGHT IN REACH.
--- NOTE | 2016-11-15 07:09 | NUR ---
Nilton BARRETT NOTIFIED OF CBC, STATUS REPORT GIVEN. NO NEW ORDER.
--- NOTE | 2016-11-15 08:45 | NUR ---
FREDI BRASHER IS HERE IN ROOM WITH PATIENT. REMOVING DRESSING TO R UPPER ARM TO ASSESS BREAKTHROUGH BLEEDING.
--- NOTE | 2016-11-15 09:00 | NUR ---
DIALYSIS STAFF HERE TO PERFORM DIALYSIS ON PATIENT.
--- NOTE | 2016-11-15 10:24 | NUR ---
* Is the patient Alert and Oriented? Yes 0 * How many steps to enter\exit or inside your home? 1 0 * PCP Dr. Amezcua in [place] 0 * Pharmacy [facility] in [place] 0 * Preadmission Environment Home with Family 0 * ADLs Independent 0 * Equipment Cane CPAP Nebulizer Oxygen 0 * List name and contact numbers for known caregivers / representatives who currently or will assist patient after discharge: Spouse - Catarina [phone] Daughter - Roma [phone] Son - Ham [phone] * Community resources currently utilized Home Health Other 0 * Please name any agencies selected above. [facility] in [place] Chair time - MWF @ 0700 0 * Additional services required to return to the preadmission environment? No 0 * Can the patient safely return to the preadmission environment? Yes 0 * Has this patient been hospitalized within the prior 30 days at any hospital? Yes 11/15/2016 10:28 DCP: Discharge Planning Patient Name: MENDOZA TRENT Admission Status: Elective Accout number: [id number] Admission Date: 11-14-2016 : 1950 Admission Diagnosis: Attending: LUIS Current LOS: 1 Anticipated DC Date: 11-15-2016 Planned Disposition: Home with Home Health Primary Insurance: MEDICARE A & B Discharge Planning Comments: CM met with patient to assess dc plans/needs. Spoke with spouse via telephone. Patient states he lives at home with his , Catarina. He reports he is uses a cane for mobility, but is otherwise independent with his care. He is currently on services with [facility]. He has a nebulizer & Home O2 which he uses at . He has a CPAP ordered, which is supposed to be delivered this week according to his . He goes to dialysis on T,TH,SA @ 0700 [facility]. At ms, he will return home with his & resume services. Case Management will follow. Labor And Employment Paralegal: Ban Salomon
--- NOTE | 2016-11-15 11:00 | NUR ---
DIALYSIS STAFF STILL DIALYZING AND IN ROOM WITH PATIENT. PATIENT IS TOLERATING IT WELL.
--- NOTE | 2016-11-15 13:28 | NUR ---
Dialysis Coordinator: [facility]: [facility] Tues/Thadrienne/Sat @ 7:00am. [address].
--- NOTE | 2016-11-15 14:31 | NUR ---
DR. MALDONADO IN ROOM TO SEE PATIENT.
--- NOTE | 2016-11-15 15:00 | NUR ---
PATIENT HAD SATURATED BARRIER PAD AND DRESSING TO R FA. DR. MALDONADO IN ROOM AND SEEN DRESSING AND PAD. SPOKE WITH DR. HUNTER ABOUT THE AMOUNT PATIENT WAS BLEEDING FROM R FA WHERE SKIN GRAFT WAS REMOVED. NO NEW ORDERS WERE RECEIVED, AND DR. HUNTER STATES HE EXPECTED THAT SINCE PATIENT WAS ON PLAVIX. DRESSING REINFORCED AND CLEAN PAD PLACED UNDER ARM.
[2016-11-15 15:18] LABS: HEMATOCRIT 30.7 % (42.0-54.0); HEMOGLOBIN 9.6 g/dL (13.5-17.5)
--- NOTE | 2016-11-15 18:45 | NUR ---
SPOKE WITH DR. HUNTER AND HE IS AWARE OF IMPROVED H&H, NO NEW ORDERS RECEIVED AT THIS TIME.
--- NOTE | 2016-11-15 19:00 | NUR ---
SHIFT ASSESSMENT COMPLETE. ALERT AND ORIENTED X4. PUPILS 4 MM, BRISK REACTION TO LIGHT. SMALL RED LESION ON BACK OF THROAT. TOP DENTURES IN. TONGUE MIDLINE. S1S2 AUDIBLE. HR 70 NORMAL SINUS VIA TELEMETRY. CRACKLES BILAT IN ALL LOBES. EDUCATION ON IS. ABDOMEN DISTENDED, BOWEL SOUNDS ACTIVE X4. R ARM DRESSING INTACT WITH BLOODY DRAINAGE, CLOTS NOTED. CHANGED PAD UNDER ARM. REINFORCED DRESSING WITH 2 PACKAGES OF KERLEX AND 3 BOXES OF 4X4 GAUZE PADS. FINGERS ARE WARM AND PT CAN MOVE THEM. CAP REFILL <3 SECONDS. SCDS REMOVED AND SKIN ASSESSED. BILAT SCABS ON SHINS. PULSES +2. SANDWICH TRAY GIVEN. BED IN LOWEST POSITION. CALL LIGHT IN REACH. WILL CONTINUE TO MONITOR.
--- NOTE | 2016-11-15 21:00 | NUR ---
PARTIAL LINEN CHANGE COMPLETE. REINFORCED DRESSING WITH 1 ROLL OF KERLEX AND 1 BOX OF 4X4 GAUZE PADS. LAST PAD HAD A MODERATE AMOUNT OF BLOOD ON IT. CLOTTING NOTED. PT WATCHING TV WITH NO FURTHER REQUESTS. CALL LIGHT IN REACH.
--- NOTE | 2016-11-15 23:15 | NUR ---
PT USING IS. MAXIUM EFFORT WAS 3500. PRACTICED WITH HIM AND HE DID GREAT WITH ALL 10 REPS. REASSESSMENT COMPLETE. CLEAR BREATH SOUNDS THROUGHOUT LOBES. REINFORCED DRESSING WITH 1 PACKAGE OF KERLIX AND 2 BOXES OF 4X4 GAUZE. 2 WHITE CHUCKS UNDER ARM. PARTIAL LINEN CHANGE. PT STATES HE IS READY FOR BED. LIGHTS TURNED OUT. CALL LIGHT IN REACH. WILL CONTINUE TO MONITOR.
[2016-11-16] VITALS (24 sets, daily range): BP systolic 121–167; BP diastolic 55–84
--- NOTE | 2016-11-16 01:30 | NUR ---
REINFORCED DRESSING WITH 4 PACKAGES OF 4X4 GAUZE, 2 ABD PADS, 3 ROLLS OF KERLIX. CHANGED SALLIE UNDER NEATH HIM. PT STATES THAT HE ISN'T FEELING WEAK AND THAT HE FEELS "FINE." CALL LIGHT IN REACH. WILL CONTINUE TO MONITOR.
--- NOTE | 2016-11-16 03:00 | NUR ---
PT ON SIDE OF BED WANTING TO GO TO THE CHAIR. UP WITH ASSIST. REINFORCED DRESSING WITH 2 BOXES OF 4X4 GAUZE AND 2 ABD PADS. WRAPPED WITH KERLIX. BREATHING TREATMENT STARTED VIA RT. COMPLETE LINEN CHANGE. PT STATES THAT HE WANTS TO SIT UP IN THE CHAIR FOR AWHILE. CALL LIGHT IN REACH. VSS. WILL CONTINUE TO MONITOR.
[2016-11-16 03:47] LABS: BASOPHILS 0.2 % (0-2); EOSINOPHILS 3.7 % (0-7); HEMOGLOBIN 8.3 g/dL (13.5-17.5); IMMATURE GRANULOCYTES 0.2 % (0-5); LYMPHOCYTES 21.5 % (15-50); MCH 32.2 pg (26.0-34.0); MCHC 31.9 g/dL (31.0-37.0); MEAN PLATELET VOLUME 10.5 fL (7.4-10.4); MONOCYTES 7.2 % (2-11); NEUTROPHILS 67.2 % (40-80); PLATELET COUNT 166 10x3/uL (130-400); RBC 2.58 10x6/uL (4.20-6.10); RDW 16.4 % (11.5-14.5); WBC 8.9 10x3/uL (4.8-10.8)
[2016-11-16 03:49] LABS: MCV 100.8 fL (80.0-100.0)
[2016-11-16 03:54] LABS: ANION GAP 14.3 mmol/L (8-16); CALCIUM 8.4 mg/dL (8.5-10.1); CREATININE - SERUM 8.7 mg/dL (0.6-1.3); POTASSIUM - SERUM 4.3 mmol/L (3.5-5.1)
--- NOTE | 2016-11-16 05:30 | NUR ---
PT ASLEEP IN CHAIR. REFUSED ORAL CARE. PARTIAL BATH COMPLETE. PT GOT AGITATED AND SAID HE DOESN'T WANT THE REST OF IT AND WILL SHOWER WHEN HE GETS HOME. REINFORCED DRESSING WITH 1 BOX 4X4 WRAPPED WITH KERLIX. TRANSITIONED PT TO BED. NEW SALLIE UNDER ARM. NEW PILLOW CASES PROVIDED. VSS. CALL LIGHT IN REACH.
--- NOTE | 2016-11-16 19:30 | NUR ---
ASSESSMENT COMPLETE. S1S2. NSR SHOWING ON MONITOR. RR EQUAL AND UNLABORED. AAO. DRESSING TO RIGHT ARM; BLOODY WITH CLOTS. PERRLA. LEFT RADIAL PULSE +2; PEDAL PULSES +2. PT ABLE TO MAKE SLIGHT CHANGES IN POSITION; NEEDS MODERATE ASSISTANCE. WEAKNESS NOTED TO EXTERMITIES X4. HYPOACTIVE BOWEL SOUNDS X4 QUADRANTS; NO TENDERNESS. ANURIC. HEMESPLIT TO RIGHT SUBCLAVIAN.
--- NOTE | 2016-11-16 20:25 | NUR ---
DRESSING BLOODY AND SATURATED WITH CLOTS. REINFORCED DRESSING AND REPLACED LINENS UNDERNEATH.
--- NOTE | 2016-11-16 21:00 | NUR ---
NO FAMILY DURING VISITATION.
--- NOTE | 2016-11-16 23:15 | NUR ---
REASSESSMENT COMPLETE. NO CHANGES FROM PREVIOUS ASSESSMENT. VSS. NO DISTRESS NOTED. WILL CONTINUE TO MONITOR.
[2016-11-17] VITALS (24 sets, daily range): BP systolic 98–186; BP diastolic 53–96
--- NOTE | 2016-11-17 00:50 | NUR ---
UPON ENTERING THE ROOM; PT WAS REMOVING THE DRESSING ON THE RIGHT ARM. REMOVED DRESSING; CLEANED SITE. TWO LARGE CLOTS REMOVED FROM SITE; CLOTS WERE NOT CONNECTED TO THE SKIN. NEW DRESSING APPLIED TO BOTH RIGHT LOWER ARM AND RIGHT UPPER ARM. BLEEDING NOTED TO THE RIGHT PROXIMAL FOREARM INCISION SITE. SUTURES INTACT AT BOTH SITES.
--- NOTE | 2016-11-17 00:50 | NUR ---
PARTIAL LINEN CHANGE; SATURATED WITH BLOOD. PLACED IN BIOHAZARD
--- NOTE | 2016-11-17 01:35 | NUR ---
PT ATTEMPTING TO GET OUT OF BED UNASSISTED. ASSISTED PT BACK TO BED. BED ALARM IN USE.
--- NOTE | 2016-11-17 03:05 | NUR ---
REASSESSMENT COMPLETE. NO CHANGES FROM PREVIOUS ASSESSMENT. VSS. WILL CONTINUE TO MONITOR.
[2016-11-17 04:38] LABS: BASOPHILS 0.1 % (0-2); EOSINOPHILS 0.9 % (0-7); HEMATOCRIT 25.2 % (42.0-54.0); HEMOGLOBIN 8.3 g/dL (13.5-17.5); IMMATURE GRANULOCYTES 0.3 % (0-5); LYMPHOCYTES 14.9 % (15-50); MCH 31.1 pg (26.0-34.0); MCHC 32.9 g/dL (31.0-37.0); MEAN PLATELET VOLUME 11.6 fL (7.4-10.4); MONOCYTES 6.8 % (2-11); PLATELET COUNT 148 10x3/uL (130-400); RBC 2.67 10x6/uL (4.20-6.10); WBC 9.7 10x3/uL (4.8-10.8)
[2016-11-17 04:46] LABS: MCV 94.4 fL (80.0-100.0)
[2016-11-17 04:54] LABS: ANION GAP 13.2 mmol/L (8-16); CALCIUM 8.8 mg/dL (8.5-10.1); CARBON DIOXIDE 27.7 mmol/L (21.0-32.0); POTASSIUM - SERUM 4.9 mmol/L (3.5-5.1)
--- NOTE | 2016-11-17 05:00 | NUR ---
PT PULLED AT DRESSING. REINFORCED DRESSING. DRESSING BLOODY.
--- NOTE | 2016-11-17 10:28 | NUR ---
NUTRITIION MONITORING & EVAL NURSING REPORTS PT WITH 100% INTAKE BREAKFAST. WILL CONTINUE TO PROVIDE CURRENT DIET, MONITOR PO INTAKE. RD FOLLOWING
--- NOTE | 2016-11-17 15:36 | NUR ---
PT UP OOB THIS AM AFTER BREAKFAST AND SAT UP FOR SEVERAL HOURS. ASSISTED BACK TO BED BY PT. BIPAP PLACED BY RT AND HD IN PROGRESS AT PRESENT. PT RESTING COMFORTABLY.
--- NOTE | 2016-11-17 17:22 | NUR ---
Mr. Bryson had bedside hemodialysis today from 1412 until 1712 via his right IJ Hemosplit. Average blood flow was 400 mls/minute. Transfused one unit of prbc's and removed the volume from the prbc's as well as a net of 3000 mls. Post vital signs were: B/P: 127/68, HR: 72, Resps: 14, Temp: 14. Used zero heparin today.
--- NOTE | 2016-11-17 19:00 | NUR ---
REPORT REC'D, PATIENT CARE ASSUMED. ASSESSMENT COMPLETED. SEE FLOW SHEETS FOR ALL FINDINGS. PT LAYING IN BED, A/O X4, DENIES ANY DISCOMFORT AT THIS TIME. RT SC HEMO SPLIT PORT INTACT ,CLEAN AND DRY. RT ARM DRESSING CLEAN AND DRY. LUNG SOUNDS CLEAR WITH FINE CRACKLES TO ULB WITH DIMINISHED TO LLB, UNLABORED ON 2L O2 VIA NC. PPP. CALL LIGHT AND BST IN REACH. WILL CONT TO MONITOR.
--- NOTE | 2016-11-17 19:00 | NUR ---
REPORT REC'D, PATIENT CARE ASSUMED. ASSESSMENT COMPLETED. SEE FLOW SHEETS FOR ALL FINDINGS. PT SITTING IN CHAIR, DENIES ANY DISCOMFORT SHANE SOB AT THIS TIME. SR ON CM WITH HR AT 84. LUNG SOUNDS CRACKLES TO ULB WITH DIMINISHED TO LLB. O2SAT 94% ON 13L HIGH FLOW NC. LEFT UA MIDLINE INTACT,CLEAN AND DRY INFUSING IV FLUID PER ORDER. PPP. BST AND CALL LIGHT IN REACH. WILL CONT TO MONITOR...
--- NOTE | 2016-11-17 21:00 | NUR ---
NO VISITORS AT THIS TIME. CALLED VIA PHONE. UPDATED AND QUESTIONS ANSWERED. SHEDULED MEDS GIVEN WITHOUT DIFFIC. CALL LIGHT IN REACH. CPOC.
--- NOTE | 2016-11-17 23:00 | NUR ---
REASSESSMENT COMPLETED. SEE FLOW SHEETS FOR ALL FINDINGS. PT ON BIPAP RESTING QUIETLY WITOUT DISTRESS. VSS. NO ACUTE CHANGES IN PT'S CONDITION NOTED. CALL LIGHT IN REACH. WILL CONT TO MONITOR.
[2016-11-18] VITALS (12 sets, daily range): BP systolic 110–167; BP diastolic 63–85
--- NOTE | 2016-11-18 01:00 | NUR ---
PT RESTING QUIETLY WITHOUT DISTRESS. VSS. NO NEEDS VOICES AT THIS TIME. CALL LIGHT IN REACH. CPOC.
--- NOTE | 2016-11-18 03:00 | NUR ---
REASSESSMENT COMPLETED. SEE FLOW SHEETS FOR ALL FINDINGS. PT RESTING QUIELTY WITHOUT DISTRESS. VSS. NO NEEDS VOICES. CALL LIGHT IN REACH. CPOC.
--- NOTE | 2016-11-18 04:00 | NUR ---
I&O COMPLETED WITHOUT DIFFIC.
[2016-11-18 05:14] LABS: BASOPHILS 0.2 % (0-2); HEMATOCRIT 26.1 % (42.0-54.0); HEMOGLOBIN 8.5 g/dL (13.5-17.5); IMMATURE GRANULOCYTES 0.4 % (0-5); LYMPHOCYTES 14.1 % (15-50); MCH 30.7 pg (26.0-34.0); MCHC 32.6 g/dL (31.0-37.0); MCV 94.2 fL (80.0-100.0); MEAN PLATELET VOLUME 11.5 fL (7.4-10.4); MONOCYTES 8.9 % (2-11); NEUTROPHILS 75.4 % (40-80); PLATELET COUNT 130 10x3/uL (130-400); RBC 2.77 10x6/uL (4.20-6.10); RDW 17.9 % (11.5-14.5); WBC 9.1 10x3/uL (4.8-10.8)
[2016-11-18 05:28] LABS: ANION GAP 11.6 mmol/L (8-16); CALCIUM 8.9 mg/dL (8.5-10.1); CARBON DIOXIDE 28.8 mmol/L (21.0-32.0); CREATININE - SERUM 8.8 mg/dL (0.6-1.3); POTASSIUM - SERUM 4.4 mmol/L (3.5-5.1)
--- NOTE | 2016-11-18 06:30 | NUR ---
RT ARM DRESSING CHANGED, SMALL AMOUNT OOZING SEROUSANGOINOUS DRESSING NOTED. PT OSMIN WELL.
--- NOTE | 2016-11-18 09:11 | NUR ---
0900- pt awakes easily, alert and oriented. ate 100% breakfast tray after meal tray set up. rt arm dsng cdi.
--- NOTE | 2016-11-18 13:04 | NUR ---
11/18/2016 13:02 DCP: Discharge Planning Patient Name: MENDOZA TRENT Encounter No: [id number] : 1950 Primary Insurance: MEDICARE A & B Anticipated DC Date: 11-15-2016 Planned Disposition: Home with Home Health External Planned Provider: [facility] DCP follow-up note: DC order rec'd. Patient and family in agreement with discharge plan. No changes to plan. Notified [facility] with [facility] of discharge - records faxed. Ban Salomon
--- NOTE | 2016-11-18 15:08 | NUR ---
PT DC HOME WITH FAMILY AFTER 1 UNIT PRBC TRANSFUSION.
== END 2016-11-18 15:10 | disposition home health service (06) | DRG 166 ==
LOC: D.OPS 06:27 → D.ICU 13:52 → D.OPS 15:09 → D.ICU 15:28
PROVIDERS: Internal Medicine Nephrology; Orthopaedic Surgery; ADMIT Internal Medicine Nephrology
PROC: 0HBDXZZ Excision of Right Lower Arm Skin, External Approach (ICD-10-PCS; 2016-11-14)
PROC: 5A09357 Assistance with Respiratory Ventilation, Less than 24 Consecutive Hours, Continuous Positive Airway Pressure (ICD-10-PCS; 2016-11-14)
PROC: 0HRFX73 Replacement of Right Hand Skin with Autologous Tissue Substitute, Full Thickness, External Approach (ICD-10-PCS; principal; 2016-11-14 08:45)
PROC: 0HBFXZZ Excision of Right Hand Skin, External Approach (ICD-10-PCS; 2016-11-14 08:45)
PROC: 5A1D60Z (ICD-10-PCS; 2016-11-15)
PROC: 5A09357 Assistance with Respiratory Ventilation, Less than 24 Consecutive Hours, Continuous Positive Airway Pressure (ICD-10-PCS; 2016-11-17)
DX: J95.821 Acute postprocedural respiratory failure (principal); B20 Human immunodeficiency virus [HIV] disease; N18.6 End stage renal disease; I12.0 Hypertensive chronic kidney disease with stage 5 chronic kidney disease or end stage renal disease; L03.011 Cellulitis of right finger; E11.622 Type 2 diabetes mellitus with other skin ulcer; L98.499 Non-pressure chronic ulcer of skin of other sites with unspecified severity; E11.22 Type 2 diabetes mellitus with diabetic chronic kidney disease; Z99.2 Dependence on renal dialysis; Y83.8 Other surgical procedures as the cause of abnormal reaction of the patient, or of later complication, without mention of misadventure at the time of the procedure; D63.1 Anemia in chronic kidney disease; E78.00 Pure hypercholesterolemia, unspecified; I25.10 Atherosclerotic heart disease of native coronary artery without angina pectoris; Z87.891 Personal history of nicotine dependence; G47.33 Obstructive sleep apnea (adult) (pediatric)

== ENCOUNTER 2017-01-02 11:45 | Day surgery (SDC) | payer MEDICARE ==
[~2017-01-02 11:45] MED LIST changes: +ALEVE220 MG PO; +ASPIRIN325 MG PO; -BAYER CHEWABLE81 MG PO; +HYDROCODONE-APA1 TAB PO
[2017-01-02 13:04] LABS: BASOPHILS 0.3 % (0-2); EOSINOPHILS 5.6 % (0-7); HEMATOCRIT 36.3 % (42.0-54.0); HEMOGLOBIN 11.5 g/dL (13.5-17.5); IMMATURE GRANULOCYTES 0.1 % (0-5); LYMPHOCYTES 22.2 % (15-50); MCH 31.9 pg (26.0-34.0); MCHC 31.7 g/dL (31.0-37.0); MCV 100.6 fL (80.0-100.0); MONOCYTES 6.2 % (2-11); NEUTROPHILS 65.6 % (40-80); RBC 3.61 10x6/uL (4.20-6.10); RDW 18.4 % (11.5-14.5); WBC 9.4 10x3/uL (4.8-10.8)
[2017-01-02 13:07] LABS: PLATELET COUNT 235 10x3/uL (130-400)
[2017-01-02 13:21] LABS: ANION GAP 15.2 mmol/L (8-16); CALCIUM 9.2 mg/dL (8.5-10.1); CARBON DIOXIDE 28.9 mmol/L (21.0-32.0); CREATININE - SERUM 10.1 mg/dL (0.6-1.3); INR 1.06 (0.85-1.17); POTASSIUM - SERUM 4.1 mmol/L (3.5-5.1); PROTIME 13.7 SECONDS (11.6-15.0)
[2017-01-02] MEDS ORDERED: VITAMIN B-1000 MCG/M IM (14:03)
[2017-01-02] MEDS ORDERED: NEURONTIN600 MG PO (14:05)
[2017-01-02] MEDS ORDERED: FLUTICASONE PRO16 GM NASAL (14:05)
[2017-01-02] MEDS ORDERED: CLARITIN 10 MG10 MG PO (14:11)
[2017-01-02] MEDS ORDERED: MOBIC7.5 MG PO (14:12)
[2017-01-02] MEDS ORDERED: VIMPAT50 MG PO (14:22)
[2017-01-02] MEDS ORDERED: VIREAD300 MG PO (14:23)
[2017-01-02] MEDS ORDERED: TUSSIONEX PENN473 ML PO (14:23)
[2017-01-02 15:05] VITALS: BP 213/106; Ht 188 cm
--- NOTE | 2017-01-02 15:34 | NUR ---
BLOOD SUGAR 82-IVANA SILVA CRITICAL CARE NURSE PRACTITIONER NOTIFIED
[2017-01-02] MEDS ORDERED: HYDROCODONE-APA1 TAB PO (17:13)
--- NOTE | 2017-01-02 19:49 | NUR ---
RIGHT CHEST DIALYSIS CATHETER FLUSHED WITH 2.1 ML HEPARIN BY ELIZ BEAR RN AND PORT CAPPED. PATIENT DRESSING IN PERSONAL CLOTHING WITH SPOUSE ASSISTANCE
--- NOTE | 2017-01-02 19:55 | NUR ---
DISCHARGE INSTRUCTIONS REVIEWED WITH PATIENT AND SPOUSE, PATIENT DISCHARGED HOME VIA WHEELCHAIR TO PRIVATE VEHICLE WITH SPOUSE AND DAUGHTER
--- NOTE | 2017-01-06 21:23 | OP ---
PATIENT NAME: MENDOZA TRENT MEDICAL RECORD: [id number] :[birth year] LOCATION:D.OPS ADMISSION DATE: SURGEON: MAX HUNTER MD DATE OF OPERATION: 01/02/2017 PREOPERATIVE DIAGNOSIS: Nonhealing wounds of the right hand, long ring and small finger dorsum. POSTOPERATIVE DIAGNOSIS: Nonhealing wounds of the right hand, long, ring and small finger dorsum. PROCEDURES: 1. Debridement of the 3 above fingers. 2. Neox full thickness graft applied to all 3 fingers of the above. SURGEON: Max Hunter MD ANESTHESIA: General. INTRAOPERATIVE COMPLICATIONS: None. SUMMARY OF PATHOLOGIC FINDINGS: The patient's fingers actually looked quite good. The previously noncovered extensor mechanism was now covered completely with granulation tissue and the entire area is amenable to final healing, hopefully with Neox. OPERATIVE SUMMARY IN DETAIL: After obtaining the appropriate preoperative orthopedic surgery consent, the patient was brought to the operating room and placed on the operating table in supine position. The patient had previously been given an interscalene block, which rendered his entire right upper extremity, anesthetize. The right upper extremity was prepped and draped in a routine sterile fashion. The 3 wounds of the finger were generally and gently debrided skin, subcutaneous tissue and then after they were debrided, the ring finger, which is the biggest of all, have a 4 x 3 Neox graft applied, it was sutured in a running fashion using 4-0 Prolene. Next, the ring finger was likewise. The ring finger wound was covered with Neox graft. Again, it was sutured in using 4 running Prolene using a 3 x 2 Neox graft and lastly, the middle finger, the smallest of the 3 wounds was also covered with 4 x 3 Neox graft using 4-0 Prolene. Having completed this, nonstick sterile dressings were applied. The patient was taken to the recovery room in stable condition. All final needle and sponge counts were correct. TRANSINT:[id number] Voice Confirmation ID: [id number] DOCUMENT ID: [id number] MAX HUNTER MD at 2123 CC: [id number] DICTATION DATE: 01/02/171722 PACKAGE SEALER: 01/02/172132 [facility] 01/02/17 [place] [id number] [place] [address]
== END 2017-01-02 19:55 | disposition home or self-care (01) ==
LOC: D.OPS 11:45 → D.PAN 17:00 → D.OPS 17:00
PROVIDERS: Anesthesiology
DX: L98.9 Disorder of the skin and subcutaneous tissue, unspecified (principal); I25.10 Atherosclerotic heart disease of native coronary artery without angina pectoris; E11.22 Type 2 diabetes mellitus with diabetic chronic kidney disease; I13.2 Hypertensive heart and chronic kidney disease with heart failure and with stage 5 chronic kidney disease, or end stage renal disease; N18.6 End stage renal disease; G47.30 Sleep apnea, unspecified; Z95.1 Presence of aortocoronary bypass graft; Z95.5 Presence of coronary angioplasty implant and graft; Z01.812 Encounter for preprocedural laboratory examination

== ENCOUNTER → 2017-05-10 07:38 | Outpatient (CLI) | payer MEDICARE ==
[~2017-05-10 07:38] MED LIST changes: +FLUTICASONE PRO16 GM NASAL; +VIMPAT50 MG PO; +VITAMIN B-1000 MCG/M IM
== END | disposition home or self-care (01) ==
LOC: D.RT 07:38
DX: J45.909 Unspecified asthma, uncomplicated (principal)

== ENCOUNTER 2017-12-05 17:25 | Inpatient (IN) | payer MEDICARE ==
[~2017-12-05] VITALS: Ht 188 cm; Wt 124.7 kg
[2017-12-05] MEDS ORDERED: PROTONIX40 MG PO (20:25)
[2017-12-05] MEDS ORDERED: PCE500 MG PO (20:26)
[2017-12-06] VITALS (7 sets, daily range): BP systolic 103–204; BP diastolic 56–107; Ht 188 cm; Wt 124.7 kg
[2017-12-06 06:28] LABS: BASOPHILS 0.3 % (0-2); EOSINOPHILS 5.5 % (0-7); HEMATOCRIT 30.2 % (42.0-54.0); HEMOGLOBIN 9.5 g/dL (13.5-17.5); IMMATURE GRANULOCYTES 0.1 % (0-5); LYMPHOCYTES 20.1 % (15-50); MCH 32.3 pg (26.0-34.0); MCHC 31.5 g/dL (31.0-37.0); MCV 102.7 fL (80.0-100.0); MEAN PLATELET VOLUME 11.3 fL (7.4-10.4); MONOCYTES 11.7 % (2-11); NEUTROPHILS 62.3 % (40-80); RBC 2.94 10x6/uL (4.20-6.10); WBC 6.8 10x3/uL (4.8-10.8)
[2017-12-06 06:42] LABS: PLATELET COUNT 154 10x3/uL (130-400)
[2017-12-06 06:54] LABS: ALBUMIN 3.2 g/dL (3.4-5.0); ANION GAP 13.9 mmol/L (8-16); BILIRUBIN - TOTAL 0.27 mg/dL (0.2-1.3); CALCIUM 7.5 mg/dL (8.5-10.1); CARBON DIOXIDE 27.9 mmol/L (21.0-32.0); POTASSIUM - SERUM 4.8 mmol/L (3.5-5.1); PROTEIN - SERUM 7.6 g/dL (6.4-8.2)
[2017-12-07 05:53] VITALS: BP 157/47
[2017-12-07 08:33] VITALS: BP 108/69
[2017-12-07 12:55] VITALS: BP 164/76
[2017-12-07 15:38] VITALS: BP 108/74
== END 2017-12-07 20:17 | disposition home health service (06) | DRG 314 ==
LOC: D.M2 17:25
PROVIDERS: Family Medicine
DX: I95.9 Hypotension, unspecified (principal); N18.6 End stage renal disease; B20 Human immunodeficiency virus [HIV] disease; I12.0 Hypertensive chronic kidney disease with stage 5 chronic kidney disease or end stage renal disease; E11.22 Type 2 diabetes mellitus with diabetic chronic kidney disease; Z99.2 Dependence on renal dialysis; E78.5 Hyperlipidemia, unspecified; I25.10 Atherosclerotic heart disease of native coronary artery without angina pectoris; Z95.1 Presence of aortocoronary bypass graft; J44.9 Chronic obstructive pulmonary disease, unspecified; E11.40 Type 2 diabetes mellitus with diabetic neuropathy, unspecified; D63.1 Anemia in chronic kidney disease; R41.0 Disorientation, unspecified